=== PATIENT | female | born 1995 | race Caucasian/White ===

== ENCOUNTER 2018-11-22 10:09 | Inpatient (IN) | payer MEDICAID ==
[2018-11-22] MEDS ORDERED: Ondansetron 4 MG/2 ML SDV IVPUSH PRN (11:55)
[2018-11-22] MEDS: Metoclopramide 10 MG/2 ML SDV IVPUSH SCH ×3 (12:47→23:59)
[2018-11-22] MEDS: Pantoprazole 40 MG Vial IVPUSH SCH (12:47)
[2018-11-22] MEDS: Sodium Chloride 0.9% 1,000 ML IV SCH (13:04)
[2018-11-22] MEDS: Insulin Aspart 100 Units/ML 3 ML Pen SUBCUT SCH ×3 (13:12→22:16)
[2018-11-22] MEDS: Morphine 2 MG/ML Syringe IVPUSH PRN ×2 (13:43→18:06)
[2018-11-22] MEDS: diphenhydrAMINE 50 MG/ML SDV IVPUSH PRN ×3 (13:53→22:29)
[2018-11-22] MEDS: Sodium Chloride 0.9% 10 ML Syringe FLUSH PRN (17:13)
[2018-11-22] MEDS ORDERED: Insulin Aspart 100 Units/ML 3 ML Pen SUBCUT SCH (18:00)
[2018-11-22] MEDS ORDERED: Labetalol 100 MG/20 ML MDV IVPUSH PRN (19:11)
[2018-11-22] MEDS ORDERED: Insulin Detemir 100 Units/ML 3 ML Pen SUBCUT ONE (22:12)
[2018-11-22] MEDS: HYDROmorphone 1 MG/ML Syringe IVPUSH PRN (22:36)
[2018-11-23] MEDS: diphenhydrAMINE 50 MG/ML SDV IVPUSH PRN ×5 (02:39→19:38)
[2018-11-23] MEDS: HYDROmorphone 1 MG/ML Syringe IVPUSH PRN ×5 (02:42→19:36)
[2018-11-23] MEDS: Sodium Chloride 0.9% 10 ML Syringe FLUSH PRN ×2 (02:42→15:16)
[2018-11-23] MEDS: Metoclopramide 10 MG/2 ML SDV IVPUSH SCH ×3 (06:24→17:48)
[2018-11-23 07:37] LABS: ANION GAP 16.5 mmol/L (5-15)
[2018-11-23] MEDS ORDERED: Insulin Detemir 100 Units/ML 3 ML Pen SUBCUT SCH ×2 (08:00→09:00)
[2018-11-23] MEDS: Sodium Chloride 0.9% 1,000 ML IV SCH (09:03)
[2018-11-23] MEDS: Insulin Aspart 100 Units/ML 3 ML Pen SUBCUT SCH ×4 (09:06→23:22)
[2018-11-23] MEDS: Pantoprazole 40 MG Vial IVPUSH SCH (09:08)
--- NOTE | 2018-11-23 14:10 | PCM.PN ---
- General Info Date of Service: 11/23/18 Functional Status: Reports: Tolerating Diet, Urinating. Denies: Pain Controlled , Ambulating, New Symptoms - Review of Systems General: Reports: No Symptoms HEENT: Reports: No Symptoms Pulmonary: Reports: No Symptoms Cardiovascular: Reports: No Symptoms Gastrointestinal: Reports: Abdominal Pain. Denies: Constipation, Decreased Appetite, Diarrhea, Nausea, Vomiting Genitourinary: Reports: No Symptoms Musculoskeletal: Reports: No Symptoms Skin: Reports: No Symptoms Neurological: Reports: No Symptoms Psychiatric: Denies: Cravings - Patient Data Vitals - Most Recent: Last Vital Signs Temp 96.9 F 11/23/18 11:00 Pulse 75 11/23/18 11:00 Resp 16 11/23/18 11:00 BP 141/88 H 11/23/18 11:00 Pulse Ox 96 11/23/18 11:00 Weight - Most Recent: 99 lb 1.6 oz I&O - Last 24 Hours: Intake & Output 11/22/18 11/23/18 11/23/18 22:59 06:59 14:59 Intake Total 8823 010 4933 Output Total 800 900 550 Balance 374 -300 523 Lab Results Last 24 Hours: Laboratory Results - last 24 hr 11/22/18 11/22/18 11/22/18 Range/Units 17:50 21:57 23:45 WBC (5.00-10.00) 10^3/uL RBC (3.80-5.50) 10^6/uL Hgb (12.0-16.0) g/dL Hct (37.0-47.0) % MCV (82.0-92.0) fL MCH (27.0-31.0) pg MCHC (32.0-36.0) g/dL RDW (11.5-14.5) % Plt Count (150-400) 10^3/uL MPV (7.4-10.4) fL Immature Gran % (Auto) (0.0-5.0) % Neut % (Auto) (50.0-70.0) % Lymph % (Auto) (20.0-40.0) % [place] % (Auto) (2.0-8.0) % Eos % (Auto) (1.0-3.0) % Baso % (Auto) (0.0-1.0) % Immature Gran # (Auto) (0.00-0.50) 10^3/uL Neut # (Auto) (2.50-7.00) 10^3/uL Lymph # (Auto) (1.00-4.00) 10^3/uL [place] # (Auto) (0.10-0.80) 10^3/uL Eos # (Auto) (0.10-0.30) 10^3/uL Baso # (Auto) (0.00-0.10) 10^3/uL Atypical Lymphocytes Abnormal Lymphocytes Sodium (136-145) mmol/L Potassium (3.3-5.3) mmol/L Chloride (98-115) mmol/L Carbon Dioxide (21.0-32.0) mmol/L Anion Gap (5-15) mmol/L BUN (6-25) mg/dL Creatinine (0.51-1.17) mg/dL Est Cr Clr Drug Dosing mL/min Estimated GFR (MDRD) mL/min Glucose (75 - 99) mg/dL POC Glucose 211 H 403 H 232 H (74-106) mg/dl Calcium (8.7-10.3) mg/dL Total Bilirubin (0.2-1.0) mg/dL AST (15-37) U/L ALT (12-78) U/L Alkaline Phosphatase (46-116) IU/L Total Protein (6.4-8.2) g/dL Albumin (3.00-4.80) g/dL Specimen Type Urine Color (YELLOW) Urine Appearance (CLEAR) Urine pH (5.0-9.0) Ur Specific [place] (1.005-1.030) Urine Protein (NEGATIVE) mg/dL Urine Glucose (UA) (NEGATIVE) mg/dL Urine Ketones (NEGATIVE) mg/dL Urine Occult Blood (NEGATIVE) Urine Nitrite (NEGATIVE) Urine Bilirubin (NEGATIVE) Urine Urobilinogen (0.2-1.0) E.U./dL Ur Leukocyte Esterase (NEGATIVE) Urine RBC (0-5) /HPF Urine WBC (0-5) /HPF Ur Epithelial Cells /LPF Urine Bacteria (NONE TO FEW) /HPF 11/23/18 11/23/18 11/23/18 Range/Units 06:00 06:23 07:00 WBC 10.24 H (5.00-10.00) 10^3/uL RBC 2.80 L (3.80-5.50) 10^6/uL Hgb 8.7 L D (12.0-16.0) g/dL Hct 26.3 L (37.0-47.0) % MCV 93.9 H D (82.0-92.0) fL MCH 31.1 H (27.0-31.0) pg MCHC 33.1 (32.0-36.0) g/dL RDW 12.5 (11.5-14.5) % Plt Count 508 H D (150-400) 10^3/uL MPV 10.3 (7.4-10.4) fL Immature Gran % (Auto) 0.2 (0.0-5.0) % Neut % (Auto) 60.3 (50.0-70.0) % Lymph % (Auto) 26.7 (20.0-40.0) % [place] % (Auto) 9.2 H (2.0-8.0) % Eos % (Auto) 3.0 (1.0-3.0) % Baso % (Auto) 0.6 (0.0-1.0) % Immature Gran # (Auto) 0.02 (0.00-0.50) 10^3/uL Neut # (Auto) 6.18 (2.50-7.00) 10^3/uL Lymph # (Auto) 2.73 (1.00-4.00) 10^3/uL [place] # (Auto) 0.94 H (0.10-0.80) 10^3/uL Eos # (Auto) 0.31 H (0.10-0.30) 10^3/uL Baso # (Auto) 0.06 (0.00-0.10) 10^3/uL Atypical Lymphocytes Occasional Abnormal Lymphocytes Rare Sodium (136-145) mmol/L Potassium (3.3-5.3) mmol/L Chloride (98-115) mmol/L Carbon Dioxide (21.0-32.0) mmol/L Anion Gap (5-15) mmol/L BUN (6-25) mg/dL Creatinine (0.51-1.17) mg/dL Est Cr Clr Drug Dosing mL/min Estimated GFR (MDRD) mL/min Glucose (75 - 99) mg/dL POC Glucose 105 (74-106) mg/dl Calcium (8.7-10.3) mg/dL Total Bilirubin (0.2-1.0) mg/dL AST (15-37) U/L ALT (12-78) U/L Alkaline Phosphatase (46-116) IU/L Total Protein (6.4-8.2) g/dL Albumin (3.00-4.80) g/dL Specimen Type Urincc Urine Color Light yellow (YELLOW) Urine Appearance Clear (CLEAR) Urine pH 6.0 (5.0-9.0) Ur Specific [place] 1.020 (1.005-1.030) Urine Protein >=300 H (NEGATIVE) mg/dL Urine Glucose (UA) 500 H (NEGATIVE) mg/dL Urine Ketones Negative (NEGATIVE) mg/dL Urine Occult Blood Small H (NEGATIVE) Urine Nitrite Negative (NEGATIVE) Urine Bilirubin Negative (NEGATIVE) Urine Urobilinogen 0.2 (0.2-1.0) E.U./dL Ur Leukocyte Esterase Negative (NEGATIVE) Urine RBC 5-10 H (0-5) /HPF Urine WBC 5-10 H (0-5) /HPF Ur Epithelial Cells Many H /LPF Urine Bacteria Rare (NONE TO FEW) /HPF 11/23/18 11/23/18 11/23/18 Range/Units 07:00 07:50 11:56 WBC (5.00-10.00) 10^3/uL RBC (3.80-5.50) 10^6/uL Hgb (12.0-16.0) g/dL Hct (37.0-47.0) % MCV (82.0-92.0) fL MCH (27.0-31.0) pg MCHC (32.0-36.0) g/dL RDW (11.5-14.5) % Plt Count (150-400) 10^3/uL MPV (7.4-10.4) fL Immature Gran % (Auto) (0.0-5.0) % Neut % (Auto) (50.0-70.0) % Lymph % (Auto) (20.0-40.0) % [place] % (Auto) (2.0-8.0) % Eos % (Auto) (1.0-3.0) % Baso % (Auto) (0.0-1.0) % Immature Gran # (Auto) (0.00-0.50) 10^3/uL Neut # (Auto) (2.50-7.00) 10^3/uL Lymph # (Auto) (1.00-4.00) 10^3/uL [place] # (Auto) (0.10-0.80) 10^3/uL Eos # (Auto) (0.10-0.30) 10^3/uL Baso # (Auto) (0.00-0.10) 10^3/uL Atypical Lymphocytes Abnormal Lymphocytes Sodium 139 (136-145) mmol/L Potassium 4.3 (3.3-5.3) mmol/L Chloride 106 (98-115) mmol/L Carbon Dioxide 20.8 L (21.0-32.0) mmol/L Anion Gap 16.5 H (5-15) mmol/L BUN 41 H (6-25) mg/dL Creatinine 3.17 H (0.51-1.17) mg/dL Est Cr Clr Drug Dosing 19.25 mL/min Estimated GFR (MDRD) 18 mL/min Glucose 102 H (75 - 99) mg/dL POC Glucose 99 84 (74-106) mg/dl Calcium 8.0 L D (8.7-10.3) mg/dL Total Bilirubin 0.1 L (0.2-1.0) mg/dL AST 10 L (15-37) U/L ALT 14 (12-78) U/L Alkaline Phosphatase 94 (46-116) IU/L Total Protein 6.2 L (6.4-8.2) g/dL Albumin 2.05 L (3.00-4.80) g/dL Specimen Type Urine Color (YELLOW) Urine Appearance (CLEAR) Urine pH (5.0-9.0) Ur Specific [place] (1.005-1.030) Urine Protein (NEGATIVE) mg/dL Urine Glucose (UA) (NEGATIVE) mg/dL Urine Ketones (NEGATIVE) mg/dL Urine Occult Blood (NEGATIVE) Urine Nitrite (NEGATIVE) Urine Bilirubin (NEGATIVE) Urine Urobilinogen (0.2-1.0) E.U./dL Ur Leukocyte Esterase (NEGATIVE) Urine RBC (0-5) /HPF Urine WBC (0-5) /HPF Ur Epithelial Cells /LPF Urine Bacteria (NONE TO FEW) /HPF Med Orders - Current: Current Medications Diphenhydramine HCl (Benadryl) 25 mg IVPUSH Q4H PRN PRN Reason: Other Last Admin: 11/23/18 11:10 Dose: 25 mg Hydromorphone HCl (Dilaudid) 1 mg IVPUSH Q4H PRN PRN Reason: Pain Last Admin: 11/23/18 11:15 Dose: 1 mg Sodium Chloride (Normal Saline) 1,000 mls @ 50 mls/hr IV ASDIRECTED [facility] Last Admin: 11/23/18 09:03 Dose: 50 mls/hr Insulin Aspart (Novolog) 0 unit SUBCUT WITHMEALSANDBED [facility]; Protocol Last Admin: 11/23/18 13:31 Dose: 6 units Insulin Detemir (Levemir) 18 unit SUBCUT DAILY@0800 [facility] Last Admin: 11/23/18 11:21 Dose: Not Given Labetalol HCl (Normodyne) 10 mg IVPUSH Q2H PRN PRN Reason: Hypertension Last Admin: 11/22/18 20:08 Dose: 10 mg Metoclopramide HCl (Reglan) 5 mg IVPUSH Q6H [facility] Last Admin: 11/23/18 11:57 Dose: 5 mg Ondansetron HCl (Zofran) 4 mg IVPUSH Q4H PRN PRN Reason: Nausea/Vomiting Last Admin: 11/22/18 12:47 Dose: 4 mg Pantoprazole Sodium (Protonix Iv) 40 mg IVPUSH DAILY [facility] Last Admin: 11/23/18 09:08 Dose: 40 mg Sodium Chloride (Saline Flush) 10 ml FLUSH Q8HR PRN PRN Reason: keep vein open Last Admin: 11/23/18 02:42 Dose: 10 ml Discontinued Medications Insulin Detemir (Levemir) 18 unit SUBCUT DAILY [facility] Insulin Detemir (Levemir) 10 unit SUBCUT ONETIME ONE Stop: 11/22/18 22:13 Last Admin: 11/22/18 22:26 Dose: 10 unit Morphine Sulfate (Morphine) 1 mg IVPUSH Q4H PRN PRN Reason: Abdominal Pain Last Admin: 11/22/18 18:06 Dose: 1 mg - Exam Quality Assessment: No: Supplemental Oxygen General: Alert, Oriented, Cooperative, No Acute Distress Neck: No JVD Lungs: Clear to Auscultation, Normal Respiratory Effort, Crackles, Rales Cardiovascular: Regular Rate, Regular Rhythm GI/Abdominal Exam: Normal Bowel Sounds, Soft, No Abnormal Bruit, No Mass. No: Distended, Guarding, Rigid, Mass (Female) Exam: Deferred Back Exam: No: CVA Tenderness (L), CVA Tenderness (R) Extremities: No Pedal Edema Peripheral Pulses: 2+: Radial (L), Radial (R) Skin: Other (pallor) Neurological: Normal Speech, Normal Tone Psy/Mental Status: Alert, Normal Affect, Normal Mood. No: Anxious, Agitated - Problem List Review Problem List Initiated/Reviewed/Updated: Yes - My Orders Last 24 Hours: My Active Orders 11/23/18 Dinner Regular Diet [DIET] - Plan Plan:: History summary: 23 y/o patient with T1DM with very variable SMBG admitted by Kristopher FRAUSTO due to abd pain, hyperglycemia. She states she has been vomiting, loose stools , with anorexia. She uses CHO-counting with correction factor for her diabetes regimen. Current Home Regimen: Meals 05/28/1800 with snacks PRN Lantus 15 U, prandial Novlog 2 units/CHO-choice with additional 2-8 Units correction factor SS Primary Hospital Problems --Abd pain, possible gastroenterapathy/gastroparesis 2/2 DM or idiopathic. Recently changed from PPI to H2, cont prokinetic for now, --Cyclical vomiting, will consider Amitriptyline in future however for now could exacerbate gastroparesis --T1DM; with recent hyperglycemia, CHO counting, Long acting insulin 10 units tonight (do not hold unless ordered) Prandial rapid acting novolog with individulailzed SS/correction factor --Renal Disease, chronic, stage 4/5, intrinsic, GFR >20, may need dialysis. --Anemia, border line macrocytic, hyperchromic, no anisocytosis, likely anemia of Renal disease/hypoprolifiertive however usually is micocytic in nature, assess retic count. will consider Epoetin amarilys --Thrombocytosis, possible reactive --GI ulcer, PPI Hospital details Inpatient with goals to stabalize BG/electrolytes/VS/education DVT PPX, ambulate, teds/scd FEN; IV NS 50ml/hour, monitor I/O Recent A1C? trending down? Current Wt: 45kg ?statin therapy since T1DM smoker with ASCVD risk?
[2018-11-23] MEDS ORDERED: Pantoprazole 40 MG Tab.CR ONE (22:25)
[2018-11-23] MEDS: Pantoprazole 40 MG Tab.CR PO SCH (22:28)
[2018-11-23] MEDS ORDERED: Lidocaine 2% Viscous Solution 100 ML Bottle PO PRN (23:37)
[2018-11-23] MEDS ORDERED: Aluminum Hydroxide/Magnesium Hydroxide/Simethicone Susp 30 ML Cup PO PRN (23:37)
[2018-11-23] MEDS ORDERED: Acetaminophen 325 MG Tab PO PRN (23:39)
[2018-11-24] MEDS: Metoclopramide 10 MG/2 ML SDV IVPUSH SCH ×3 (00:33→13:16)
[2018-11-24] MEDS: diphenhydrAMINE 50 MG/ML SDV IVPUSH PRN ×2 (00:38→10:30)
[2018-11-24] MEDS: Insulin Aspart 100 Units/ML 3 ML Pen SUBCUT SCH ×3 (03:22→12:22)
[2018-11-24] MEDS: Pantoprazole 40 MG Tab.CR PO SCH (08:17)
[2018-11-24 09:36] LABS: ANION GAP 20.4 mmol/L (5-15)
[2018-11-24] MEDS: Sodium Chloride 0.9% 1,000 ML IV SCH (11:10)
[2018-11-24 11:36] VITALS: BP 146/89
[2018-11-24] MEDS ORDERED: Dicyclomine 20 MG/2 ML SDV IM ONE (12:16)
--- NOTE | 2018-11-24 12:32 | PCM.DCSUM1 ---
Discharge Summary - Hospital Course Free Text/Narrative:: Date of admission: 11/22/18 Date of discharge: 11/24/18 Admission diagnoses: 1. Epigastric pain 2. Nausea 3. Anemia 4. CKD, stage IV 5. DMT1, uncontrolled 6. Hypoalbuminemia 7. Hypocalcemia (listed on H&P, but corrected calcium wnl) 8. Hyponatremia (listed on H&P, but correcte sodium wnl) 9. Leukocytosis 10. Positive D-dimer Discharge diagnoses: 1. Epigastric pain 2. Nausea 3. Duodenal ulcer 4. Gastric motility disorder, likely 5. Anemia 6. CKD, stage IV 7. DMT1, uncontrolled 8. Leukocytosis, chronic 9. Protein calorie malnutrition 10. Tobacco dependence 11. Positive D-dimer (rechecked on admission for unclear reason; patient denies s/sx of VTE/PE since arrival) 12. Medication nonadherence Consultations: None Procedures: None Hospital course: Abran is a 23yoF with a history significant for poorly controlled DMT1, progressive CKD, and chronic GI complaints with multiple recent hospitalizations and ED visits for complications related to these conditions and overarching concern of medication nonadherence. She was seen at the [facility] by PCP Kristopher Nesbitt PA-C on 11/21/18 for hospital follow-up. The note states that she complained of ongoing abdominal pain and nausea. She had labs obtained and she states that she was called the following day and agreed to admission for pain medication. Upon arrival at the hospital, she was noted to have normal VS except for mildly elevated BP. She was started on morphine, then hydromorphone for her abdominal pain in addition to Zofran and Reglan for nausea and presumed gastric emptying disorder. Narcotic medications were later stopped after reviewing recent hospital records from her stay at [facility] during which she had upper endoscopy noting residual food in the stomach thought to be related to gastric emptying disorder versus functional narcotic bowel as well as a duodenal ulcer; narcotic medications were stopped and encouraged to not be restarted at least until gastric motility study could be completed, which was ordered (but patient states she has not been contacted to schedule). When narcotic medications were stopped this hospitalization, she desired leaving the hospital against medical advice during the night, but the weather precluded her from doing so. On the morning of discharge, she sought discharge and follow-up as scheduled on at the [facility] at a consultation previously scheduled with Dr. Jeniffer Lambert. Following discussion, she agreed to follow-up with her lip of shank cutter as scheduled later this month and agrees to referral to nephrology to see a different sr. operations manager, which will be coordinated at follow- up. She did not have any fever, tachycardia, or tachypnea throughout her stay. Her BPs were intermittently high. Her blood sugars were at her baseline with drastic swings from hypoglycemia to hyperglycemia for which she was inconsistent with taking basal insulin and uses her own scale for bolus insulin. Her leukocytosis and anemia remained stable compared to her recent baselines and she exhibited no signs of infection or bleeding, but her PPI was restarted given the recent diagnosis of duodenal ulcer. Her GFR also remained at her baseline, which has been 13-18 in the past month; offered to have her stay for trending or come in for recheck over the weekend, but she declined. Hyponatremia and hypocalcemia were noted on admission H&P, but these were normal when corrected for blood sugar and albumin. D-dimer was checked on admission for which note states to recheck from prior ED visit; no further diagnostic testing was pursued as she was asymptomatic without any symptoms of VTE/PE. Extensively discussed return precautions for worsening or new symptoms. Again encouraged consideration of staying for further monitoring or outpatient labs over the weekend, but she declined. Follow-up items: - Recheck CBC and renal function panel (orders placed) - Ensure scheduling for gastric emptying study (order previously placed by [facility]) - Ensure scheduling with nephrology (referral order placed for different sr. operations manager) - Ensure follow-up with endocrinology as scheduled - Discharge Data Discharge Date: 11/24/18 Discharge Disposition: Home, Self-Care 01 Condition: Fair - Patient Instructions Diet: GI Soft/Low Residue/Low Fiber Activity: As Tolerated Showering/Bathing: May Shower Notify Provider of: Fever, Increased Pain, Swelling and Redness Other/Special Instructions: Calls and referrals placed for gastric emptying study and nephrology, as discussed. At your appointment on 11/27/[address] Jeniffer Lambert, she can coordinate with you regarding the status of these referrals and ensure they are scheduled and you are notified. - Discharge Plan *PRESCRIPTION DRUG MONITORING PROGRAM REVIEWED*: Yes *COPY OF PRESCRIPTION DRUG MONITORING REPORT IN PATIENT JAMARCUS: Yes Prescriptions/Med Rec: Metoclopramide [Reglan] 5 mg PO Q8H #50 tab Ondansetron [Zofran] 4 mg PO Q6H PRN #20 tab PRN Reason: Nausea Pantoprazole [ProTONIX] 40 mg PO BIDAC #14 tab.cr Home Medications: Home Meds Insulin Aspart [NovoLOG] 2 unit SQ TIDMEALS PRN 09/09/18 [History] Albuterol [Ventolin HFA] 1 - 2 puff INH Q4H PRN 10/27/18 [History] Insulin Glarg,Human.Rec.Analog [Lantus] 15 unit SUBCUT BEDTIME 11/16/18 [History ] Acetaminophen [Tylenol] 650 mg PO Q6H PRN tablet 11/24/18 [Rx] Metoclopramide [Reglan] 5 mg PO Q8H #50 tab 11/24/18 [Rx] Ondansetron [Zofran] 4 mg PO Q6H PRN #20 tab 11/24/18 [Rx] Pantoprazole [ProTONIX] 40 mg PO BIDAC #14 tab.cr 11/24/18 [Rx] Patient Handouts: Peptic Ulcer, [id number], Peptic Ulcer Eating Plan Referrals: Jeniffer Lambert MD [Physician] - (As scheduled on 11/27/18 at 10:40 at [facility]) - Discharge Summary/Plan Comment DC Time >30 min.: Yes - General Info Date of Service: 11/24/18 Subjective Update: Ms. Wilson reports ongoing abdominal pain, which she admits being present for the past several months. She states that the only thing that helps it is narcotic pain medications. Reviewed previous hospitalization recommendations from her recent stay at [facility], notably cessation of narcotic pain medications and obtaining GI motility study, which was ordered; she states she was never contacted to set this up. She also states she was never told she was found to have a duodenal ulcer and yesterday stated she had taken herself off PPI, but today states she believes she has been taking BID since discharge. States she has an appointment with her lip of shank cutter, Dr. Maya, later this month. States she she doesn't know her her sr. operations manager is, but that she realizes her kidneys aren't doing well. She has no new complaints today. Has ongoing nausea, which is also chronic for her. States she wishes to go home to be with her children. Denies fever, chills, appetite change, chest pain, palpitations, shortness of breath, cough, emesis, constipation, dysuria, or other complaints. - Patient Data Vitals - Most Recent: Last Vital Signs Temp 36.4 C 11/24/18 11:00 Pulse 84 11/24/18 11:00 Resp 16 11/24/18 11:00 BP 146/89 H 11/24/18 11:00 Pulse Ox 95 11/24/18 11:00 Weight - Most Recent: 44.951 kg I&O - Last 24 hours: Intake & Output 11/23/18 11/24/18 11/24/18 22:59 06:59 14:59 Intake Total 523 641 Output Total 500 1100 Balance 23 -459 Lab Results - Last 24 hrs: Laboratory Results - last 24 hr 11/23/18 11/23/18 11/23/18 Range/Units 11:56 17:43 21:28 Sodium (136-145) mmol/L Potassium (3.3-5.3) mmol/L Chloride (98-115) mmol/L Carbon Dioxide (21.0-32.0) mmol/L Anion Gap (5-15) mmol/L BUN (6-25) mg/dL Creatinine (0.51-1.17) mg/dL Est Cr Clr Drug Dosing mL/min Estimated GFR (MDRD) mL/min Glucose (75 - 99) mg/dL POC Glucose 84 70 L 121 H (74-106) mg/dl Calcium (8.7-10.3) mg/dL Phosphorus (2.6-4.7) mg/dL Magnesium (1.8-2.4) mg/dL 11/24/18 11/24/18 11/24/18 Range/Units 03:19 07:35 08:05 Sodium 135 L (136-145) mmol/L Potassium 5.5 H (3.3-5.3) mmol/L Chloride 102 (98-115) mmol/L Carbon Dioxide 18.1 L (21.0-32.0) mmol/L Anion Gap 20.4 H (5-15) mmol/L BUN 54 H* (6-25) mg/dL Creatinine 3.61 H (0.51-1.17) mg/dL Est Cr Clr Drug Dosing 16.90 mL/min Estimated GFR (MDRD) 15 mL/min Glucose 297 H (75 - 99) mg/dL POC Glucose 495 H 322 H (74-106) mg/dl Calcium 8.3 L (8.7-10.3) mg/dL Phosphorus 4.1 (2.6-4.7) mg/dL Magnesium 1.8 (1.8-2.4) mg/dL Med Orders - Current: Current Medications Acetaminophen (Tylenol) 650 mg PO Q6H PRN PRN Reason: Pain Al Hydroxide/Mg Hydroxide (Mag-Al Plus) 5 ml PO Q6H PRN PRN Reason: epigastric pain Diphenhydramine HCl (Benadryl) 25 mg IVPUSH Q4H PRN PRN Reason: Other Last Admin: 11/24/18 10:30 Dose: 25 mg Sodium Chloride (Normal Saline) 1,000 mls @ 50 mls/hr IV ASDIRECTED [facility] Last Admin: 11/24/18 11:10 Dose: 50 mls/hr Insulin Aspart (Novolog) 0 unit SUBCUT WITHMEALSANDBED [facility]; Protocol Last Admin: 11/24/18 12:22 Dose: 4 unit Insulin Detemir (Levemir) 18 unit SUBCUT DAILY@0800 [facility] Last Admin: 11/23/18 11:21 Dose: Not Given Labetalol HCl (Normodyne) 10 mg IVPUSH Q2H PRN PRN Reason: Hypertension Last Admin: 11/22/18 20:08 Dose: 10 mg Lidocaine HCl (Xylocaine 2% Viscous) 5 ml PO Q6H PRN PRN Reason: epigastric pain Metoclopramide HCl (Reglan) 5 mg IVPUSH Q6H [facility] Last Admin: 11/24/18 05:55 Dose: 5 mg Ondansetron HCl (Zofran) 4 mg IVPUSH Q4H PRN PRN Reason: Nausea/Vomiting Last Admin: 11/22/18 12:47 Dose: 4 mg Pantoprazole Sodium (Protonix) 40 mg PO BIDAC [facility] Last Admin: 11/24/18 08:17 Dose: 40 mg Sodium Chloride (Saline Flush) 10 ml FLUSH Q8HR PRN PRN Reason: keep vein open Last Admin: 11/23/18 15:16 Dose: 10 ml Discontinued Medications Dicyclomine HCl (Bentyl) 20 mg IM ONETIME ONE Stop: 11/24/18 12:17 Hydromorphone HCl (Dilaudid) 1 mg IVPUSH Q4H PRN PRN Reason: Pain Last Admin: 11/23/18 19:36 Dose: 1 mg Insulin Detemir (Levemir) 18 unit SUBCUT DAILY [facility] Insulin Detemir (Levemir) 10 unit SUBCUT ONETIME ONE Stop: 11/22/18 22:13 Last Admin: 11/22/18 22:26 Dose: 10 unit Morphine Sulfate (Morphine) 1 mg IVPUSH Q4H PRN PRN Reason: Abdominal Pain Last Admin: 11/22/18 18:06 Dose: 1 mg Pantoprazole Sodium (Protonix Iv) 40 mg IVPUSH DAILY [facility] Last Admin: 11/23/18 09:08 Dose: 40 mg Pantoprazole Sodium (Protonix) Confirm Administered Dose 40 mg .ROUTE .STK- MED ONE Stop: 11/23/18 22:26 Last Admin: 11/23/18 23:09 Dose: Not Given Ranitidine HCl (Zantac) 150 mg PO BID [facility] Last Admin: 11/23/18 23:31 Dose: Not Given - Exam Physical Findings Comments:: GENERAL: Thin adult female sitting in hospital bed appearing comfortable and in no acute distress. HEENT: Normocephalic, atraumatic. Conjunctiva clear. Nares patent without discharge. Mucous membranes moist, posterior pharynx unremarkable. NECK: Supple, no masses. CV: Regular rate and rhythm, no murmurs, rubs, or gallops. 2+ radial pulses. PULMONARY: Normal effort, clear to auscultation bilaterally, no wheezes, rales, or rhonchi. ABDOMEN: Positive bowel sounds, soft, nontender to percussion throughout, but tender to moderate palpation in the diffuse upper abdomen, nondistended. EXTREMITIES: No edema, cyanosis, or clubbing. MUSCULOSKELETAL: Moves all extremities well. NEUROLOGICAL: No obvious deficits. DERMATOLOGIC: No rashes or suspicious lesions in exposed areas. Several tattoos and piercings. PSYCHIATRIC: Alert, interactive, appropriate affect.
== END 2018-11-24 13:54 | disposition home or self-care (01) | DRG 74 ==
LOC: KA.MS 10:59
PROVIDERS: ADMIT Physician Assistant; ATTEND Nurse Practitioner Family
DX: E10.43 Type 1 diabetes mellitus with diabetic autonomic (poly)neuropathy (principal); N18.4 Chronic kidney disease, stage 4 (severe); E46 Unspecified protein-calorie malnutrition; E87.1 Hypo-osmolality and hyponatremia; E10.65 Type 1 diabetes mellitus with hyperglycemia; K31.84 Gastroparesis; E88.09 Other disorders of plasma-protein metabolism, not elsewhere classified; I12.9 Hypertensive chronic kidney disease with stage 1 through stage 4 chronic kidney disease, or unspecified chronic kidney disease; E10.22 Type 1 diabetes mellitus with diabetic chronic kidney disease; D72.829 Elevated white blood cell count, unspecified; K26.9 Duodenal ulcer, unspecified as acute or chronic, without hemorrhage or perforation; K59.8 Other specified functional intestinal disorders; Z68.22 Body mass index [BMI] 22.0-22.9, adult; R79.89 Other specified abnormal findings of blood chemistry; E83.51 Hypocalcemia; K21.9 Gastro-esophageal reflux disease without esophagitis; E10.3599 Type 1 diabetes mellitus with proliferative diabetic retinopathy without macular edema, unspecified eye; G43.A0 Cyclical vomiting, in migraine, not intractable; D53.9 Nutritional anemia, unspecified; D47.3 Essential (hemorrhagic) thrombocythemia; K25.9 Gastric ulcer, unspecified as acute or chronic, without hemorrhage or perforation; Z96.1 Presence of intraocular lens; Z91.14 Patient's other noncompliance with medication regimen; Z79.4 Long term (current) use of insulin; Z79.899 Other long term (current) drug therapy; Z88.0 Allergy status to penicillin; Z88.2 Allergy status to sulfonamides; Z88.1 Allergy status to other antibiotic agents; Z88.6 Allergy status to analgesic agent; Z91.040 Latex allergy status; Z88.5 Allergy status to narcotic agent; Z88.8 Allergy status to other drugs, medicaments and biological substances; Z91.048 Other nonmedicinal substance allergy status; Z98.42 Cataract extraction status, left eye; Z98.41 Cataract extraction status, right eye; Z90.49 Acquired absence of other specified parts of digestive tract; Z90.710 Acquired absence of both cervix and uterus; Z87.891 Personal history of nicotine dependence
CPT/HCPCS: 36415; 80048; 80053; 81001; 82962; 83735; 84100; 85025; A9270-GY; C9113; J0500; J1170; J1200; J1815-GY; J2270; J2405; J2765; J3490; J7030

== ENCOUNTER 2019-09-02 21:21 | Emergency (ER) | payer MEDICARE, MEDICAID ==
[2019-09-02] MEDS ORDERED: traMADol 50 MG Tab PO ONE ×2 (21:43→22:34)
[2019-09-02 21:49] VITALS: BP 152/79; PULSE 103
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
--- NOTE | 2019-09-03 08:49 | CR ---
[id number] RAD/RAD Knee Right 3V EXAM: RIGHT KNEE 3 VIEWS INDICATION: PAIN, DOG JUMPED ON HER AND KNEE BUCKLED COMPARISON: None. DISCUSSION: No fracture, joint effusion, dislocation or other osseous abnormality. Healed nonossifying fibroma in the posterior medial aspect of the distal femoral diaphysis. IMPRESSION: 1. No acute findings. Kole Fletcher MD 09/03/19 0848 Thank you for allowing us to participate in the care of your patient.
== END 2019-09-02 22:38 | disposition home or self-care (01) ==
LOC: KA.ED 21:21
DX: S83.91XA Sprain of unspecified site of right knee, initial encounter (principal); I25.2 Old myocardial infarction; E10.22 Type 1 diabetes mellitus with diabetic chronic kidney disease; N18.6 End stage renal disease; E10.319 Type 1 diabetes mellitus with unspecified diabetic retinopathy without macular edema; E10.36 Type 1 diabetes mellitus with diabetic cataract; E10.43 Type 1 diabetes mellitus with diabetic autonomic (poly)neuropathy; K31.84 Gastroparesis; E10.42 Type 1 diabetes mellitus with diabetic polyneuropathy; J45.909 Unspecified asthma, uncomplicated; K21.9 Gastro-esophageal reflux disease without esophagitis; Z79.4 Long term (current) use of insulin; Z79.899 Other long term (current) drug therapy; Z88.0 Allergy status to penicillin; Z88.1 Allergy status to other antibiotic agents; Z88.2 Allergy status to sulfonamides; Z88.6 Allergy status to analgesic agent; Z88.8 Allergy status to other drugs, medicaments and biological substances; Z91.040 Latex allergy status; Z91.048 Other nonmedicinal substance allergy status; Z99.2 Dependence on renal dialysis; W54.1XXA Struck by dog, initial encounter; Y92.009 Unspecified place in unspecified non-institutional (private) residence as the place of occurrence of the external cause
CPT/HCPCS: 73562; 99283; A9270; 99284

== ENCOUNTER 2019-09-23 21:41 | Emergency (ER) | payer MEDICAID, MEDICARE ==
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
[2019-09-23 22:25] VITALS: BP 218/102; PULSE 75
--- NOTE | 2019-09-24 08:10 | CR ---
[id number] RAD/RAD Ribs Right W PA Chest EXAM: RAD Ribs Right W PA Chest INDICATION: RIB PAIN COMPARISON: 2009. DISCUSSION: Cardiomediastinal silhouette is normal in size and contour. No infiltrate, effusion, pneumothorax, or edema. No rib fracture. IMPRESSION: Negative examination of the chest. Shane Faria MD 09/24/19 0809 Thank you for allowing us to participate in the care of your patient.
== END 2019-09-23 23:35 | disposition home or self-care (01) ==
LOC: KA.ED 21:41
DX: R07.89 Other chest pain (principal); I25.2 Old myocardial infarction; J45.909 Unspecified asthma, uncomplicated; Z86.711 Personal history of pulmonary embolism; K21.9 Gastro-esophageal reflux disease without esophagitis; E10.21 Type 1 diabetes mellitus with diabetic nephropathy; E10.22 Type 1 diabetes mellitus with diabetic chronic kidney disease; N18.9 Chronic kidney disease, unspecified; E10.42 Type 1 diabetes mellitus with diabetic polyneuropathy; F17.210 Nicotine dependence, cigarettes, uncomplicated; Z88.1 Allergy status to other antibiotic agents; Z88.8 Allergy status to other drugs, medicaments and biological substances; Z88.0 Allergy status to penicillin; Z88.2 Allergy status to sulfonamides; Z91.040 Latex allergy status; Z79.01 Long term (current) use of anticoagulants; Z79.899 Other long term (current) drug therapy
CPT/HCPCS: 71101-RT; 81001; 87086; 99284; 99284-25

== ENCOUNTER 2019-10-02 21:45 | Emergency (ER) | payer MEDICARE, MEDICAID ==
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
[2019-10-02 22:54] VITALS: BP 163/82; PULSE 94
--- NOTE | 2019-10-03 07:58 | CR ---
[id number] RAD/RAD Hip Right 2-3V; [id number] RAD/RAD Pelvis 1-2V EXAM: AP PELVIS, 2 VIEWS RIGHT HIP CLINICAL DATA: FALL COMPARISON: None. FINDINGS: No fracture, dislocation or destructive osseous lesion is identified. No significant degenerative changes in the hips or sacroiliac joints. Peritoneal dialysis catheter overlying the left pelvis. IMPRESSION: 1. Negative exam. Kole Fletcher MD 10/03/19 0757 Thank you for allowing us to participate in the care of your patient.
== END 2019-10-02 23:10 | disposition home or self-care (01) ==
LOC: KA.ED 21:45
DX: S70.01XA Contusion of right hip, initial encounter (principal); E10.9 Type 1 diabetes mellitus without complications; I25.2 Old myocardial infarction; Z88.1 Allergy status to other antibiotic agents; Z88.6 Allergy status to analgesic agent; Z91.040 Latex allergy status; Z88.0 Allergy status to penicillin; Z88.2 Allergy status to sulfonamides; Z88.8 Allergy status to other drugs, medicaments and biological substances; W18.09XA Striking against other object with subsequent fall, initial encounter; Y92.009 Unspecified place in unspecified non-institutional (private) residence as the place of occurrence of the external cause
CPT/HCPCS: 72170; 82962; 99283-25; 99284

== ENCOUNTER 2019-12-01 19:38 | Emergency (ER) | payer MEDICARE, MEDICAID ==
[2019-12-01] MEDS ORDERED: Sodium Chloride 0.9% 1,000 ML ONE (20:19)
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
[2019-12-01] MEDS ORDERED: HYDROmorphone 1 MG/ML Syringe IVPUSH ONE (20:53)
[2019-12-01] MEDS ORDERED: Ondansetron 4 MG/2 ML SDV IVPUSH ONE (20:53)
[2019-12-01] MEDS ORDERED: diphenhydrAMINE 50 MG/ML SDV ONE (21:12)
[2019-12-01] MEDS ORDERED: diphenhydrAMINE 50 MG/ML SDV IVPUSH ONE (21:16)
[2019-12-01] MEDS ORDERED: traMADol 50 MG Tab PO ONE (21:22)
[2019-12-01 21:39] VITALS: BP 166/90; PULSE 94
[2019-12-04] MEDS ORDERED: Sodium Chloride 0.9% 1,000 ML IV ONE (15:42)
== END 2019-12-01 21:30 | disposition home or self-care (01) ==
LOC: KA.ED 19:38
DX: E10.43 Type 1 diabetes mellitus with diabetic autonomic (poly)neuropathy (principal); K31.84 Gastroparesis; I25.2 Old myocardial infarction; J45.909 Unspecified asthma, uncomplicated; Z86.711 Personal history of pulmonary embolism; Z88.8 Allergy status to other drugs, medicaments and biological substances; Z88.1 Allergy status to other antibiotic agents; Z88.0 Allergy status to penicillin; Z91.040 Latex allergy status; Z79.899 Other long term (current) drug therapy
CPT/HCPCS: 80053; 83690; 85025; 96374; 96375; 99284; 99284-25; A9270-GY; J1170; J1200; J2405; J7030

== ENCOUNTER 2019-12-18 21:57 | Emergency (ER) | payer MEDICARE, MEDICAID ==
[2019-12-18 22:24] VITALS: PULSE 75
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
[2019-12-18 22:42] VITALS: BP 198/102
== END 2019-12-18 22:50 | disposition home or self-care (01) ==
LOC: KA.ED 21:57
DX: R10.84 Generalized abdominal pain (principal); I10 Essential (primary) hypertension; E11.9 Type 2 diabetes mellitus without complications; I25.2 Old myocardial infarction; K21.9 Gastro-esophageal reflux disease without esophagitis; Z88.1 Allergy status to other antibiotic agents; Z88.5 Allergy status to narcotic agent; Z88.6 Allergy status to analgesic agent; Z91.048 Other nonmedicinal substance allergy status; Z88.0 Allergy status to penicillin; Z88.2 Allergy status to sulfonamides; Z88.8 Allergy status to other drugs, medicaments and biological substances; Z79.4 Long term (current) use of insulin; Z79.899 Other long term (current) drug therapy
CPT/HCPCS: 99283; 99284

== ENCOUNTER 2020-01-05 21:21 | Emergency (ER) | payer MEDICARE, MEDICAID ==
[2020-01-05 21:31] VITALS: BP 123/94; PULSE 114
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
[2020-01-05] MEDS ORDERED: traMADol 50 MG Tab PO ONE (22:04)
== END 2020-01-05 22:15 | disposition home or self-care (01) ==
LOC: KA.ED 21:21
DX: H92.02 Otalgia, left ear (principal); E10.40 Type 1 diabetes mellitus with diabetic neuropathy, unspecified; I12.0 Hypertensive chronic kidney disease with stage 5 chronic kidney disease or end stage renal disease; N18.9 Chronic kidney disease, unspecified; Z88.8 Allergy status to other drugs, medicaments and biological substances; Z88.1 Allergy status to other antibiotic agents; Z88.2 Allergy status to sulfonamides; Z88.0 Allergy status to penicillin; Z88.6 Allergy status to analgesic agent; Z79.899 Other long term (current) drug therapy; Z79.4 Long term (current) use of insulin
CPT/HCPCS: 99283; A9270; 99282

== ENCOUNTER 2020-01-15 19:35 | Emergency (ER) | payer MEDICARE, MEDICAID ==
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
[2020-01-15] MEDS: diphenhydrAMINE 50 MG/ML SDV IVPUSH ONE (21:09)
[2020-01-15] MEDS: Ondansetron 4 MG Tab.DIS PO ONE (21:09)
[2020-01-15] MEDS: Sodium Chloride 0.9% 1,000 ML IV ONE (21:09)
[2020-01-15] MEDS: HYDROmorphone 1 MG/ML Syringe IVPUSH ONE (21:09)
[2020-01-15] MEDS: Ondansetron 4 MG/2 ML SDV IVPUSH ONE (21:09)
[2020-01-15] MEDS: diphenhydrAMINE 50 MG/ML SDV IM ONE (21:10)
[2020-01-15] MEDS: HYDROmorphone 1 MG/ML Syringe IM ONE (21:10)
[2020-01-15 21:15] VITALS: BP 198/114; PULSE 111
== END 2020-01-15 21:55 | disposition home or self-care (01) ==
LOC: KA.ED 19:35
DX: G43.909 Migraine, unspecified, not intractable, without status migrainosus (principal); F17.210 Nicotine dependence, cigarettes, uncomplicated; I25.2 Old myocardial infarction; J45.909 Unspecified asthma, uncomplicated; E11.21 Type 2 diabetes mellitus with diabetic nephropathy; E11.22 Type 2 diabetes mellitus with diabetic chronic kidney disease; N18.4 Chronic kidney disease, stage 4 (severe); Z99.2 Dependence on renal dialysis; Z79.4 Long term (current) use of insulin; Z88.8 Allergy status to other drugs, medicaments and biological substances; Z88.1 Allergy status to other antibiotic agents; Z88.0 Allergy status to penicillin; Z88.2 Allergy status to sulfonamides; Z79.899 Other long term (current) drug therapy
CPT/HCPCS: 96372; 99283; A9270; J1170; J1200

== ENCOUNTER 2020-01-23 19:35 | Emergency (ER) | payer MEDICARE, MEDICAID ==
[2020-01-23 20:24] VITALS: BP 220/113; PULSE 103
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
--- NOTE | 2020-01-23 20:36 | CR ---
[id number] RAD/RAD Hand Left 2V EXAM: RAD Hand Left 2V INDICATION: LEFT PINKY PAIN. COMPARISON: April 04, 2011. DISCUSSION: Possible vascular calcifications along the ventral aspect of the wrist and distal forearm. Joint spaces are maintained. No fracture, dislocation or other osseous abnormality. IMPRESSION: 1. No acute findings. Kole Fletcher MD 01/23/20 2034 Thank you for allowing us to participate in the care of your patient.
[2020-01-23] MEDS: traMADol 50 MG Tab PO ONE (21:02)
== END 2020-01-23 21:07 | disposition home or self-care (01) ==
LOC: KA.ED 19:35 → SUPCPDRO 19:35 → KA.ED 21:07
DX: S60.052A Contusion of left little finger without damage to nail, initial encounter (principal); H92.01 Otalgia, right ear; I10 Essential (primary) hypertension; I25.2 Old myocardial infarction; M41.9 Scoliosis, unspecified; E10.319 Type 1 diabetes mellitus with unspecified diabetic retinopathy without macular edema; E10.21 Type 1 diabetes mellitus with diabetic nephropathy; J45.909 Unspecified asthma, uncomplicated; Z79.899 Other long term (current) drug therapy; Z88.1 Allergy status to other antibiotic agents; Z88.8 Allergy status to other drugs, medicaments and biological substances; Z88.0 Allergy status to penicillin; Z88.2 Allergy status to sulfonamides; X58.XXXA Exposure to other specified factors, initial encounter
CPT/HCPCS: 73120-LT; 99283-25; 99284; A9270-GY